=== PATIENT | male | born 1970 | race Caucasian/White ===

== ENCOUNTER 2018-01-14 14:23 | Emergency (ER) | payer OTHER ==
[~2018-01-14] VITALS: Ht 182.9 cm; Wt 100.0 kg
[2018-01-14] MEDS ORDERED: ASPIRIN 81 MG TABLET CHEW ONE (14:38)
[2018-01-14] MEDS ORDERED: ATOR40TA78 PO (14:52)
[2018-01-14] MEDS ORDERED: ALBU18HF INH (14:52)
[2018-01-14] MEDS ORDERED: FLUT200B INH (14:52)
[2018-01-14 14:57] LABS: BASOPHILS # (AUTO) 0.04 x10^3/uL (0-0.1); BASOPHILS % (AUTO) 1 % (0-1); EOSINOPHILS # (AUTO) 0.21 x10^3/uL (0-0.4); EOSINOPHILS % (AUTO) 4 % (1-7); LYMPHOCYTES # (AUTO) 1.66 x10^3/uL (1-3.4); LYMPHOCYTES % (AUTO) 28 % (22-44); MD NO; MEAN CORPUSCULAR HEMOGLOBIN 30.2 pg (27.5-34.5); MEAN CORPUSCULAR HGB CONC 34.2 g/dL (33.2-36.2); MEAN CORPUSCULAR VOLUME 88.4 fL (81-97); MEAN PLATELET VOLUME 9.4 fL (7.4-10.4); MONOCYTES # (AUTO) 0.39 x10^3/uL (0.2-0.8); MONOCYTES % (AUTO) 7 % (2-9); NEUTROPHILS # (AUTO) 3.56 x10^3/uL (1.8-6.8); NEUTROPHILS % (AUTO) 61 % (42-75); PLATELET COUNT 222 x10^3/uL (130-400); RED CELL DISTRIBUTION WIDTH 13.4 % (9.4-14.8)
[2018-01-14] MEDS ORDERED: ASPIRIN 81 MG TABLET CHEW PO ONE (15:00)
[2018-01-14 15:05] LABS: ANION GAP 12 mmol/L (5-15); CALCIUM 8.7 mg/dL (8.5-10.1); CHLORIDE 110 mmol/L (98-107); CREATININE 1.37 mg/dL (0.7-1.3)
[2018-01-14 15:09] LABS: T4 (THYROXINE) 10.2 mcg/dL (4.5-12.1); TROPONIN I < 0.015 ng/mL (0.000-0.045)
[2018-01-14 17:40] LABS: TROPONIN I < 0.015 ng/mL (0.000-0.045)
[2018-01-14 18:14] VITALS: BP 133/85
== END 2018-01-14 18:43 | disposition home or self-care (01) ==
LOC: ED 15:55
DX: R07.2 Precordial pain (principal); R00.2 Palpitations
CPT/HCPCS: 36415; 71046; 80048; 82040; 84436; 84443; 84484; 85025; 93005; 99285

== ENCOUNTER 2020-10-30 21:38 | Emergency (ER) | payer OTHER ==
[~2020-10-30] VITALS: Ht 182.9 cm; Wt 100.8 kg
[~2020-10-30 21:38] MED LIST: ALBU18HF INH; ATOR40TA78 PO; FLUT200B INH
[2020-10-30 21:44] VITALS: BP 131/102
[2020-10-30 22:03] LABS: BASOPHILS % (AUTO) 1 % (0-1); EOSINOPHILS % (AUTO) 4 % (1-7); LYMPHOCYTES % (AUTO) 24 % (22-44); MEAN CORPUSCULAR HEMOGLOBIN 29.8 pg (27.5-34.5); MEAN CORPUSCULAR HGB CONC 33.9 g/dL (33.2-36.2); MEAN PLATELET VOLUME 8.9 fL (7.4-10.4); MONOCYTES % (AUTO) 8 % (2-9); NEUTROPHILS % (AUTO) 64 % (42-75); PLATELET COUNT 254 x10^3/uL (130-400); RED BLOOD COUNT 5.54 x10^6/uL (4.38-5.82); RED CELL DISTRIBUTION WIDTH 13.7 % (9.4-14.8)
[2020-10-30 22:15] LABS: ALBUMIN 3.9 g/dL (3.4-5.0); ANION GAP 4 mmol/L (5-15); CALCIUM 9.4 mg/dL (8.5-10.1); CHLORIDE 109 mmol/L (98-107); CREATININE 1.25 mg/dL (0.7-1.3)
[2020-10-30 22:19] LABS: TROPONIN I < 0.015 ng/mL (0.000-0.045)
--- NOTE | 2020-10-30 22:47 | NUR ---
certified surgical technician: per registration, patient signed out AMA. Proper documentation provided.
== END 2020-10-30 22:49 | disposition left against medical advice (07) ==
LOC: ED 21:50
DX: R07.89 Other chest pain (principal); Z53.21 Procedure and treatment not carried out due to patient leaving prior to being seen by health care provider
CPT/HCPCS: 36415; 71045; 80048; 82040; 84484; 85025; 93005